=== PATIENT | male | born 1945 | race Caucasian/White ===

== ENCOUNTER 2022-09-16 09:58 | Outpatient (RCR) | payer OTHER, SELFPAY ==
--- NOTE | 2022-08-28 15:45 | URNOTE ---
Request received from [facility] for authorization for Leuprolide ([id number]). Prior Authorization is not needed [employer] per [employer].
--- NOTE | 2022-09-04 08:44 | ONC.NURNOTE ---
Dx: prostate cancer
[2022-09-16 10:11] VITALS: BP 149/77; PULSE 59; RESP 16; TEMP 36.3; O2SAT 97
[2022-09-16] MEDS: LEUPROLIDE ACETATE 22.5 MG (SQ) SYRINGE SUBCUT (10:41)
== END 2023-03-15 23:59 | disposition home or self-care (01) ==
LOC: CCIC 09:58
PROVIDERS: PCP Internal Medicine; Visit Provider Internal Medicine
DX: C61 Malignant neoplasm of prostate (principal)
CPT/HCPCS: 96401; J9217